=== PATIENT | male | born 1980 | race Two or more races ===

== ENCOUNTER 2023-06-15 00:45 | Emergency (ER) | payer MEDICAID ==
[~2023-06-15] VITALS: Ht 182.9 cm; Wt 102.1 kg
[2023-06-15 02:02] VITALS: TEMP 98.4
[2023-06-15] MEDS ORDERED: HYDROCODONE/APAP 10/325MG TABLET ONE (02:27)
[2023-06-15] MEDS ORDERED: HYDROCODONE/APAP 10/325MG TABLET PO ONE (02:30)
[2023-06-15] MEDS ORDERED: HYDROCODONE/APAP 5/325MG TABLET ONE (03:54)
[2023-06-15] MEDS ORDERED: TRAM50TA2 PO (03:56)
[2023-06-15] MEDS ORDERED: HYDROCODONE/APAP 5/325MG TABLET PO ONE (04:00)
[2023-06-15 04:05] VITALS: BP 144/93; O2SAT 98
== END 2023-06-15 04:05 | disposition home or self-care (01) ==
LOC: ER 00:53
DX: S02.2XXA Fracture of nasal bones, initial encounter for closed fracture (principal); S00.11XA Contusion of right eyelid and periocular area, initial encounter; S06.9X1A Unspecified intracranial injury with loss of consciousness of 30 minutes or less, initial encounter; Y04.2XXA Assault by strike against or bumped into by another person, initial encounter; Y93.89 Activity, other specified; Y92.89 Other specified places as the place of occurrence of the external cause; Y99.8 Other external cause status
CPT/HCPCS: 70450-TC; 70486-TC